=== PATIENT | female | born 1960 | race Caucasian/White ===

== ENCOUNTER → 2018-06-08 | Outpatient (CLI) | payer BC ==
--- NOTE | 2018-06-08 23:09 | MR ---
EXAMINATION TYPE: MR lumbar spine wo con DATE OF EXAM: 06/08/2018 COMPARISON: 10/20/2017 HISTORY: TECHNIQUE: Multiplanar, multisequence images of the lumbar spine were acquired. Multiplanar multiecho imaging of the lumbar spine was performed without contrast. There is fairly normal alignment of the vertebra. There is degenerative disc space narrowing at L2-3 L3-4 with posterior disc herniations. This is larger at L3-4. There is mild spinal stenosis at L3-4 d ue to disc herniation and mild facet arthropathy. There is no lumbar paraspinal mass. The posterior e lements are intact. The visualized sacroiliac joints are intact. There is a 2 mm retrolisthesis of L3 in relation L4. IMPRESSION: Spondylotic changes at L2-3 L3-4 with posterior disc herniations as above. Mild spinal stenosis at L3 -4. Mild degenerative retrolisthesis at L3-4. No fracture.
== END | disposition home or self-care (01) ==
LOC: RADMRIMAIN 21:21
PROVIDERS: ATTEND Psychiatry & Neurology Pain Medicine
DX: M48.061 Spinal stenosis, lumbar region without neurogenic claudication (principal); M51.26 Other intervertebral disc displacement, lumbar region; M43.16 Spondylolisthesis, lumbar region; M47.816 Spondylosis without myelopathy or radiculopathy, lumbar region
CPT/HCPCS: 72148

== ENCOUNTER 2020-05-27 08:02 | Day surgery (SDC) | payer BC ==
[2020-05-26 09:47] VITALS: BMI 31.5
[~2020-05-27 08:02] MED LIST: LACTATED RINGERS 1,000 ML IV SCH; LIDOCAINE 1% (10MG/ML) FOR IV START INTRADERMA PRN
[2020-05-27 08:23] VITALS: TEMP 97.6
[2020-05-27] MEDS ORDERED: PROPOFOL 10 MG/ML 20 ML VIAL IV ONE (08:47)
--- NOTE | 2020-05-27 08:52 | P.GSHP ---
History of Present Illness H&P Date: 05/27/20 Chief Complaint: GERD, screening Patient here today for upper endoscopy and lower endoscopy. Last colonoscopy 20 years ago. No family history of colon cancer. No bowel related complaints. Patient does have symptoms of GERD and dysphagia. Points to her throat as the site of obstruction. Said she had a previous EGD showing hiatal hernia and did have a dilation. Past Medical History Past Medical History: GERD/Reflux, Supraventricular Tachycardia (SVT), Thyroid Disorder Additional Past Medical History / Comment(s): heart arrythmia History of Any Multi-Drug Resistant Organisms: None Reported Past Surgical History: Adenoidectomy, Cholecystectomy, Joint Replacement, Tonsillectomy Additional Past Surgical History / Comment(s): LT TKA X 2. COLONOSCOPY/EGD Past Anesthesia/Blood Transfusion Reactions: No Reported Reaction Smoking Status: Never smoker - Past Family History Mother Family Medical History: No Reported History Medications and Allergies Home Medications Medication Instructions Recorded Confirmed Type Flecainide [Tambocor] 100 mg PO BID 06/28/14 05/27/20 History Metoprolol Succinate (ER) [Toprol 25 mg PO DAILY 06/28/14 05/27/20 History XL] Levothyroxine Sodium [Synthroid] 125 mcg PO DAILY 05/26/20 05/27/20 History Methylphenidate HCl 40 mg PO DAILY 05/26/20 05/27/20 History [Methylphenidate ER (LA)] Allergies Allergy/AdvReac Type Severity Reaction Status Date / Time No Known Allergies Allergy Verified 05/26/20 09:36 Surgical - Exam Vital Signs Temp Pulse Resp BP Pulse Ox 97.6 F 67 16 128/62 96 05/27/20 08:18 05/27/20 08:18 05/27/20 08:18 05/27/20 08:18 05/27/20 08:18 Physical exam: General: Well-developed, well-nourished HEENT: Normocephalic, sclerae nonicteric Abdomen: Nontender, nondistended Extremities: No edema Neuro: Alert and oriented Assessment and Plan (1) GERD (gastroesophageal reflux disease) Narrative/Plan: Will proceed with upper and lower endoscopy. Current Visit: Yes Status: Acute Code(s): K21.9 - GASTRO-ESOPHAGEAL REFLUX DISEASE WITHOUT ESOPHAGITIS SNOMED Code(s): 418938866
--- NOTE | 2020-05-27 09:14 | P.PCN ---
Date of Procedure: 05/27/20 Procedure(s) Performed: PREOPERATIVE DIAGNOSIS: GERD, screening, dysphagia POSTOPERATIVE DIAGNOSIS: Gastritis with erosions, hepatic flexure polyp PROCEDURE: 1. EGD with biopsy 2. Colonoscopy with snare polypectomy ANESTHESIA: MAC SURGEON: Hever Alba M.D. SPECIMENS: Antrum ENDOSCOPIC PROCEDURE: The patient was on the endoscopy table in the left decubitus position. The Olympus gastroscope was inserted into the oropharynx and passed under direct visualization to the region of the third portion of the duodenum. From that point the scope was slowly withdrawn inspecting all surfaces carefully. There were no neoplastic inflammatory or polypoid lesions throughout the duodenum. The pylorus was widely patent. The stomach was carefully inspected. There was gastritis present with small erosions in the antrum and pyloric region. A biopsy of the antrum took place to rule out H. pylori. Retroflexion revealed a normal hiatus. The esophagus was then carefully examined. There were no neoplastic inflammatory or polypoid lesions throughout the visualized esophagus. There was no evidence of esophageal stricture. The patient was kept on the endoscopy table in the left decubitus position. The Olympus colonoscope was inserted into the anus and passed under direct visualization to the base of the cecum. The appendiceal orifice was visualized. From that point the scope was slowly withdrawn inspecting all surfaces carefully. There were no neoplastic inflammatory or polypoid lesions throughout the cecum or ascending colon. At the hepatic flexure a small polyp was identified and removed using the snare with cautery technique. Even though it sounded that the polyp was suctioned into the scope we were not able to identify any specimen in our specimen container. This had the appearance of a small adenoma. The remainder of the transverse descending sigmoid and rectum appeared normal. There was no visible diverticulosis. Digital rectal examination was normal. The patient was taken to the recovery room in stable condition per anesthesia guidelines. RECOMMENDATIONS: Begin antiacid therapy. Await biopsy results. Advise follow- up colonoscopy 5 years.
[2020-05-27 09:35] VITALS: BP 104/68; PULSE 50; RESP 16
== END 2020-05-27 10:00 | disposition home or self-care (01) ==
LOC: ORWHC2ENDO 08:02
PROVIDERS: ATTEND Surgery
DX: Z12.11 Encounter for screening for malignant neoplasm of colon (principal); K63.5 Polyp of colon; K29.70 Gastritis, unspecified, without bleeding; K25.9 Gastric ulcer, unspecified as acute or chronic, without hemorrhage or perforation; K21.9 Gastro-esophageal reflux disease without esophagitis; I47.1 Supraventricular tachycardia; E07.9 Disorder of thyroid, unspecified; Z79.890 Hormone replacement therapy; Z79.899 Other long term (current) drug therapy; Z96.652 Presence of left artificial knee joint; Z90.49 Acquired absence of other specified parts of digestive tract; Z90.89 Acquired absence of other organs
CPT/HCPCS: 45385; 43239; J2704; 88305

== ENCOUNTER 2024-02-14 21:40 | Emergency (ER) | payer BC ==
--- NOTE | 2024-02-14 22:23 | ED ---
General Adult HPI - General Chief complaint: Fall Stated complaint: Fall-Head/L Shoulder injury Time Seen by Provider: 02/14/24 22:01 Source: patient, RN notes reviewed Mode of arrival: ambulatory Limitations: no limitations - History of Present Illness Initial comments: 63-year-old female presents to the emergency department for evaluation of a fall. Patient states that she was dog sitting looking for the light switch. She states that she was on the stairs and thought there was only 1 stair left so when she went to take the next step she fell forward. She reports that she landed on her left shoulder and also hit her head. She denies any other injury. She did not lose consciousness, is not on blood thinners. She denies headache, vomiting. - Related Data Home Medications Medication Instructions Recorded Confirmed Flecainide [Tambocor] 100 mg PO BID 06/28/14 05/27/20 Metoprolol Succinate (ER) [Toprol 25 mg PO DAILY 06/28/14 05/27/20 XL] Levothyroxine Sodium [Synthroid] 125 mcg PO DAILY 05/26/20 05/27/20 Methylphenidate HCl 40 mg PO DAILY 05/26/20 05/27/20 [Methylphenidate ER (LA)] Previous Rx's Medication Instructions Recorded Omeprazole [PriLOSEC] 20 mg PO AC-BRKFST #90 cap 05/27/20 HYDROcodone/APAP 10-325MG [[place] 1 tab PO Q6HR PRN 3 Days #12 tab 02/14/24 10-325] Allergies Allergy/AdvReac Type Severity Reaction Status Date / Time metal Allergy Unknown Uncoded 02/14/24 21:48 Review of Systems ROS Statement: Those systems with pertinent positive or pertinent negative responses have been documented in the HPI. ROS Other: All systems not noted in ROS Statement are negative. Past Medical History Past Medical History: GERD/Reflux, Supraventricular Tachycardia (SVT), Thyroid Disorder Additional Past Medical History / Comment(s): heart arrythmia History of Any Multi-Drug Resistant Organisms: None Reported Past Surgical History: Adenoidectomy, Cholecystectomy, Joint Replacement, Tonsillectomy Additional Past Surgical History / Comment(s): LT TKA X 2. COLONOSCOPY/EGD Past Anesthesia/Blood Transfusion Reactions: No Reported Reaction Past Psychological History: No Psychological Hx Reported Smoking Status: Never smoker Past Alcohol Use History: None Reported Past Drug Use History: None Reported - Past Family History Mother Family Medical History: No Reported History General Exam Limitations: no limitations General appearance: alert, in no apparent distress Head exam: Present: other (Left-sided forehead hematoma) Eye exam: Present: normal appearance, PERRL, EOMI. Absent: scleral icterus, conjunctival injection, periorbital swelling ENT exam: Present: normal exam, mucous membranes moist, TM's normal bilaterally, normal external ear exam Neck exam: Present: normal inspection, full ROM. Absent: tenderness, meningismus, lymphadenopathy Respiratory exam: Present: normal lung sounds bilaterally. Absent: respiratory distress, wheezes, rales, rhonchi, stridor Cardiovascular Exam: Present: regular rate, normal rhythm, normal heart sounds. Absent: systolic murmur, diastolic murmur, rubs, gallop, clicks Extremities exam: Present: tenderness (Left shoulder), normal capillary refill, other (radial pulses 2+, swelling at the left shoulder). Absent: full ROM Back exam: Present: normal inspection Neurological exam: Present: alert, oriented X3, CN II-XII intact, normal gait Expanded Patient oriented to: Present: person, place, time Speech: Present: fluid speech Cranial nerves: EOM's Intact: Normal, Gag Reflex: Normal, Facial Sensation: Normal Ataxia: Absent: yes Cerebellar function: Finger to Nose: Normal, Heel to [place]: Normal Sensory exam: Upper Extremity Light Touch: Normal, Lower Extremity Light Touch: Normal Motor strength exam: RUE: 5, LUE: 5, RLE: 5, LLE: 5 Eye Response: (4) open spontaneously Motor Response: (6) obeys commands Verbal Response: (5) oriented An Total: 15 Psychiatric exam: Present: normal affect, normal mood Skin exam: Present: warm, dry, intact, other (Ecchymosis to the left lateral forehead with scalp hematoma). Absent: rash Course Vital Signs 02/14/24 02/14/24 21:42 23:43 Temperature 98.1 F 98.2 F Pulse Rate 110 H 88 Respiratory 20 18 Rate Blood Pressure 135/88 126/80 O2 Sat by Pulse 95 96 Oximetry Medical Decision Making - Medical Decision Making Was pt. sent in by a medical professional or institution (, PA, [employer] SALESPERSON, urgent care, hospital, or skilled nursing...) When possible be specific @ -No Did you speak to anyone other than the patient for history (EMS, parent, family, police, friend...)? What history was obtained from this source @ -No Did you review nursing and triage notes (agree or disagree)? Why? @ -I reviewed and agree with nursing and triage notes Were old charts reviewed (outside hosp., previous admission, EMS record, old EKG, old radiological studies, urgent care reports/EKG's, skilled nursing records)? Report findings @ -No old charts were reviewed Differential Diagnosis (chest pain, altered mental status, abdominal pain women, abdominal pain men, vaginal bleeding, weakness, fever, dyspnea, syncope, headache, dizziness, GI bleed, back pain, seizure, CVA, palpatations, mental health, musculoskeletal)? @ -Fall, head injury, fracture, this list is not inclusive EKG interpreted by me (3pts min.). @ -None X-rays interpreted by me (1pt min.). @ -X-ray of the left shoulder was obtained which shows a comminuted fracture of the proximal humerus CT interpreted by me (1pt min.). @ -None done U/S interpreted by me (1pt. min.). @ -None done What testing was considered but not performed or refused? (CT, X-rays, U/S, labs)? Why? @ -None What meds were considered but not given or refused? Why? @ -None Did you discuss the management of the patient with other professionals (professionals i.e. , PA, [employer] SALESPERSON, lab, RT, psych nurse, licensed social worker, craniologist, teacher, sheriff's officer, disease case manager rn)? Give summary @ -No Was smoking cessation discussed for >3mins.? @ -No Was critical care preformed (if so, how long)? @ -No Were there social determinants of health that impacted care today? How? (Homelessness, low income, unemployed, alcoholism, drug addiction, transportation, low edu. Level, literacy, decrease access to med. care, shelter, rehab)? @ -No Was there de-escalation of care discussed even if they declined (Discuss DNR or withdrawal of care, Hospice)? DNR status @ -No What co-morbidities impacted this encounter? (DM, HTN, Smoking, COPD, CAD, Cancer, CVA, ARF, Chemo, Hep., AIDS, mental health diagnosis, sleep apnea, morbid obesity)? @ -None Was patient admitted / discharged? Hospital course, mention meds given and route, prescriptions, significant lab abnormalities, going to OR and other pertinent info. @ -Discharged. Patient presented to the emergency department for evaluation of left shoulder pain following a fall. She also reports hitting her head, she did not lose consciousness not on blood thinners, denies headache, vomiting. She is otherwise acting appropriately, neurological exam unremarkable. X-ray of the left shoulder was obtained which shows a comminuted fracture of the proximal humerus. Patient is placed in a coaptation splint along with a sling. She was provided medication for pain relief at home for the next 3 days. She was advised to follow-up with orthopedics in the a.m. Patient is understanding agreeable with this plan. Patient stable at time of discharge. Case discussed with Dr. Graham Undiagnosed new problem with uncertain prognosis? @ -No Drug Therapy requiring intensive monitoring for toxicity (Heparin, Nitro, Insulin, Cardizem)? @ -No Were any procedures done? @ -Patient placed in a coaptation splint and sling Diagnosis/symptom? @ -Default Acute, or Chronic, or Acute on Chronic? @ -Default Uncomplicated (without systemic symptoms) or Complicated (systemic symptoms)? @ -Default Side effects of treatment? @ -No Exacerbation, Progression, or Severe Exacerbation? @ -No Poses a threat to life or bodily function? How? (Chest pain, [place], [place], pneumonia, PE, COPD, DKA, ARF, appy, cholecystitis, CVA, Diverticulitis, Homicidal, Suicidal, threat to staff... and all critical care pts) @ -No Disposition Clinical Impression: Proximal humerus fracture Disposition: HOME SELF-CARE Condition: Stable Instructions (If sedation given, give patient instructions): Arm Fracture in Adults (ED) Additional Instructions: Please follow up with orthopedics. Return to the emergency department for new or worsening symptoms. Prescriptions: HYDROcodone/APAP 10-325MG [[place] 10-325] 1 tab PO Q6HR PRN 3 Days #12 tab PRN Reason: Pain Is patient prescribed a controlled substance at d/c from ED?: Yes When asked, does pt state using other controlled substances?: No If prescribed controlled substance>3 days was MAPS reviewed?: Prescribed <3 Days Referrals: Stevie Martinez MD [Primary Care Provider] - 1-2 days Felipe Flores DO [Doctor of Osteopathic Medicine] - 1-2 days
[2024-02-14] MEDS: HYDROmorphone 0.5 MG/0.5 ML SYRINGE IM STA (22:34)
--- NOTE | 2024-02-14 23:09 | XR ---
EXAM: XR Left Shoulder Complete, 2 or More Views CLINICAL HISTORY: Pain TECHNIQUE: Two or more views of the left shoulder. COMPARISON: No relevant prior studies available. FINDINGS: Bones/joints: There is a comminuted fracture involving the proximal left humerus with involvement of the surgical neck and humeral head. Comminuted fracture with mild displacement is noted involving the greater tubercle. The humeral head remains aligned with the glenoid. The scapula, clavicle and ribs are intact. Hypertrophic changes noted involving the acromioclavicular joint. Soft tissues: No significant overlying acute traumatic soft tissue abnormality. No radiopaque foreign body or subcutaneous emphysema. IMPRESSION: There is a comminuted fracture involving the proximal left humerus with involvement of the surgical neck and humeral head. Comminuted fracture with mild displacement is noted involving the greater tubercle. The humeral head remains aligned with the glenoid.
[2024-02-14] MEDS: ACET/COD 300 MG/30 MG STARTER PACK 6 TAB BTL PO STA (23:40)
[2024-02-15 00:09] VITALS: BP 126/80; PULSE 88; RESP 18; TEMP 98.2
== END 2024-02-14 23:47 | disposition home or self-care (01) ==
LOC: EC 21:40
DX: S42.202A Unspecified fracture of upper end of left humerus, initial encounter for closed fracture (principal); Z91.048 Other nonmedicinal substance allergy status; W10.8XXA Fall (on) (from) other stairs and steps, initial encounter
CPT/HCPCS: 73030; 99284; 96372; J1170

== ENCOUNTER → 2025-06-14 | Outpatient (CLI) | payer BC ==
--- NOTE | 2025-06-16 14:37 | MR ---
EXAMINATION TYPE: MR cervical spine wo con DATE OF EXAM: 06/14/2025 12:22 PM COMPARISON: None. CLINICAL INDICATION: Female, 65 years old with history of M54.12 RADICULOPATHY, CERVICAL REGION, Righ t sided neck pain, headaches S/P fall February 2024. TECHNIQUE: Multiplanar, multisequence images of the cervical spine were acquired without contrast. FINDINGS: No craniocervical junction abnormality, predental space widening, or prevertebral soft tissue swellin g. There is straightening of the normal cervical lordosis. Degenerative trace grade 1 anterolisthesis C7 -T1. Mild to moderate multilevel degenerative disc disease with desiccated, mildly narrowed, and bulging d iscs. Moderate to advanced hypertrophic facet and uncovertebral joint arthropathy is present throughout. Small disc osteophyte complexes contributing to mild narrowing of the spinal canal particularly at C4 -C5 and C5-C6. No large focal disc herniation or significant spinal canal stenosis is seen. No suspicious bone marrow placement. No T2 weighted cord signal abnormality is seen. At C3-C4, changes result in moderate bilateral neuroforaminal stenosis. At C4-C5, change results in moderate to severe left and [id number] right neuroforaminal stenosi s. At C5-C6, changes associated in severe left and moderate right neuroforaminal stenosis. At C6-C7, there is mild bilateral neuroforaminal narrowing. At C7-T1, there is moderate right and mild left neuroforaminal stenosis. IMPRESSION: 1. Mild to moderate multilevel degenerative disc disease along with moderate to advanced hypertrophic facet/uncovertebral joint arthropathy throughout. Degenerative grade 1 anterolisthesis C7-T1. 2. Small disc osteophyte complexes mildly narrow the spinal canal at C4-C5 and C5-C6. No focal disc h erniation or significant spinal canal stenosis is seen. 3. Variable neural foraminal stenoses as outlined above, severe on the left at C5-C6 and moderate to severe on the left at C4-C5. [facility], , 06/16/2025 2:35 PM
== END | disposition home or self-care (01) ==
LOC: RADMRIMAIN 11:36
PROVIDERS: ATTEND Neurological Surgery
DX: M47.22 Other spondylosis with radiculopathy, cervical region (principal); M48.02 Spinal stenosis, cervical region; M50.13 Cervical disc disorder with radiculopathy, cervicothoracic region; M25.78 Osteophyte, vertebrae; M99.71 Connective tissue and disc stenosis of intervertebral foramina of cervical region
CPT/HCPCS: 72141